=== PATIENT | male | born 1945 | race Caucasian/White ===

== ENCOUNTER 2024-05-07 04:35 | Inpatient (IN) | payer MEDICARE, BC ==
[~2024-05-07] VITALS: Ht 172.7 cm; Wt 68.0 kg
[2024-05-07] MEDS ORDERED: ACETAMINOPHEN 500 MG TABLET PO ONE (04:45)
[2024-05-07] MEDS: IV NORMAL SALINE 1000 ML BAG IV ONE ×2 (05:37→08:31)
[2024-05-07] MEDS ORDERED: ACETAMINOPHEN 650 MG SUPP.RECT RC ONE (05:39)
[2024-05-07] MEDS ORDERED: ONDANSETRON 4 MG/2 ML VIAL ONE (05:39)
[2024-05-07 05:43] LABS: BASOPHILS % (AUTO) 0.4 % (0.0-2.0); EOSINOPHILS # (AUTO) 0.1 K/uL (0.0-0.7); EOSINOPHILS % (AUTO) 1.1 % (0.0-7.0); HEMATOCRIT 34.9 % (36.7-47.1); HEMOGLOBIN 12.3 g/dL (12.5-16.3); LYMPHOCYTES # (AUTO) 0.4 K/uL (0.8-4.8); LYMPHOCYTES % (AUTO) 3.9 % (20.5-51.5); MEAN CORPUSCULAR HEMOGLOBIN 32.4 uug (23.8-33.4); MEAN CORPUSCULAR HGB CONC 35 g/dL (32.5-36.3); MEAN CORPUSCULAR VOLUME 91.9 fL (73.0-96.2); MONOCYTES # (AUTO) 0.4 K/uL (0.1-1.30); MONOCYTES % (AUTO) 3.9 % (0.0-11.0); NEUTROPHILS # (AUTO) 9.6 K/uL (1.8-8.9); NEUTROPHILS % (AUTO) 90.7 % (38.5-71.5); PLATELET COUNT (AUTO) 219 K/uL (152-348); RED BLOOD CELL COUNT(AUTO) 3.79 MIL/uL (4.06-5.63); WHITE BLOOD COUNT (AUTO) 10.6 K/uL (3.6-10.2)
[2024-05-07] MEDS ORDERED: ROSU5TAB PO (05:50)
[2024-05-07] MEDS ORDERED: AMLO10TA59 PO (05:50)
[2024-05-07] MEDS ORDERED: INSU100I26 SQ (05:50)
[2024-05-07] MEDS ORDERED: PRED2.5T PO (05:50)
[2024-05-07] MEDS ORDERED: HYDR-4075 PO (05:50)
[2024-05-07] MEDS: ACETAMINOPHEN 650 MG SUPP.RECT RC ONE (05:53)
[2024-05-07] MEDS: ONDANSETRON 4 MG/2 ML VIAL IV ONE (05:54)
[2024-05-07 05:57] LABS: ACETONE, SERUM NEGATIVE (NEGATIVE); MAGNESIUM 1.8 mg/dL (1.8-2.4)
[2024-05-07 06:03] LABS: ALANINE AMINOTRANSFERASE 22 U/L (16-63); ALBUMIN 3.7 g/dL (3.4-5.0); ALKALINE PHOSPHATASE 65 U/L (50-136); ASPARTATE AMINOTRANSFERASE 7 U/L (15-37); BILIRUBIN,DIRECT 0.2 mg/dL (0.0-0.2); CARBON DIOXIDE 25 mmol/L (21-32); CHLORIDE 103 mmol/L (98-107); CREATININE 1.4 mg/dL (0.6-1.3); GLUCOSE 221 mg/dL (74-106); NT-PRO BNP 269 pg/mL (0-125); POTASSIUM 3.1 mmol/L (3.5-5.1); SODIUM SERUM 140 mmol/L (136-145); TOTAL PROTEIN, SERUM 7.1 g/dL (6.4-8.2); UREA NITROGEN, BLOOD 28 mg/dL (7-18)
[2024-05-07] MEDS ORDERED: CEFTRIAXONE /D5W 50ML IVPB **ER PYXIS IV ONE (06:24)
[2024-05-07] MEDS: CEFTRIAXONE 1 G in IV DEXTROSE 5% 50 ML IV ONE (06:29)
[2024-05-07 09:35] LABS: *BILIRUBIN,URIN NEGATIVE (NEGATIVE); *BLOOD, URINE NEGATIVE (NEGATIVE); *CLARITY,URINE CLEAR (CLEAR); *COLOR,URINE YELLOW (YELLOW); *KETONES,URINE NEGATIVE (NEGATIVE); *PROTEIN,URINE 2+ (NEGATIVE); *UROBILINOGEN,URINE 0.2 E.U./dl (NORMAL); LEUKOCYTE ESTERASE ,URINE NEGATIVE (NEGATIVE); NITRITE, URINE NEGATIVE (NEGATIVE); UGLUCOSE TRACE (NEGATIVE)
[2024-05-07 10:11] LABS: BACTERIA,URINE FEW /HPF (NONE SEEN); RBC,URINE 0-3 /HPF (0-3); SQUAMOUS EPITHELIAL CELL,UR FEW /HPF (NONE SEEN); WBC,URINE 0-3 /HPF (0-3)
[2024-05-07] MEDS ORDERED: INSULIN REGULAR, HUMAN 1000 UNIT/10 ML VIAL SQ SCH (11:45)
[2024-05-07] MEDS ORDERED: REMEDY ESSENTIAL ZINC PASTE 113 GM TP PRN (11:45)
[2024-05-07] MEDS: BLOOD SUGAR DIAGNOSTIC 1 EACH STRIP VI SCH (11:45)
[2024-05-07] MEDS ORDERED: MAGNESIUM HYDROXIDE 30 ML LIQUID UDC PO PRN (11:45)
[2024-05-07] MEDS ORDERED: POTASSIUM CHLORIDE 10 MEQ TAB.PRT.SR PO ONE (11:45)
[2024-05-07] MEDS ORDERED: ONDANSETRON 4 MG/2 ML VIAL IV PRN (11:45)
[2024-05-07] MEDS ORDERED: DEXTROSE 50% 50 ML DISP.SYRIN IV PRN (12:00)
[2024-05-07 12:12] VITALS: BP 148/78; TEMP 98.2
[2024-05-07] MEDS ORDERED: LEVO125T8 PO (12:59)
[2024-05-07] MEDS ORDERED: INSU100I33 SQ (12:59)
[2024-05-07] MEDS ORDERED: PANT40TA49 PO (12:59)
[2024-05-07] MEDS ORDERED: ROSU10TA29 PO (12:59)
[2024-05-07] MEDS ORDERED: CILO100T PO (12:59)
[2024-05-07] MEDS ORDERED: HYDR-894 PO (12:59)
[2024-05-07] MEDS: IV NS 1000 ML 1,000 ML IV PRN (13:42)
[2024-05-07] MEDS: TAMSULOSIN HCL 0.4 MG CAP.SR.24H PO ONE (14:03)
[2024-05-07] MEDS: POTASSIUM CHLORIDE 20 MEQ TAB.PRT.SR PO ONE (14:03)
[2024-05-07] MEDS: CILOSTAZOL 100 MG TABLET PO SCH (17:33)
[2024-05-07] MEDS: hydrALAZINE HCL 25 MG TABLET PO SCH (17:33)
[2024-05-07 18:39] VITALS: BP 168/90; TEMP 98.4
[2024-05-07] MEDS ORDERED: hydrALAZINE HCL 25 MG TABLET PO PRN (19:15)
[2024-05-07 19:30] VITALS: BP 162/88; TEMP 101; O2SAT 97
[2024-05-07] MEDS: ACETAMINOPHEN 325 MG TABLET PO PRN (20:13)
[2024-05-07] MEDS: ATORVASTATIN 20 MG TABLET PO SCH (20:13)
[2024-05-07] MEDS: INSULIN REGULAR, HUMAN 1000 UNIT/10 ML VIAL SQ PRN (20:18)
[2024-05-07] MEDS: INSULIN GLARGINE,HUM 300 UNITS/3 ML CARTRIDGE SQ SCH (20:19)
[2024-05-07 20:21] LABS: *BILIRUBIN,URIN NEGATIVE (NEGATIVE); *BLOOD, URINE NEGATIVE (NEGATIVE); *CLARITY,URINE CLEAR (CLEAR); *COLOR,URINE LIGHT YELLOW (YELLOW); *KETONES,URINE NEGATIVE (NEGATIVE); *PROTEIN,URINE 1+ (NEGATIVE); *UROBILINOGEN,URINE 0.2 E.U./dl (NORMAL); LEUKOCYTE ESTERASE ,URINE NEGATIVE (NEGATIVE); NITRITE, URINE NEGATIVE (NEGATIVE); PH,URINE 7.5 (5.0-8.0); UGLUCOSE TRACE (NEGATIVE)
[2024-05-07 20:25] LABS: *CREATININE,URINE 20.1 mg/dL (30-125); *URINE TOTAL PROTEIN RANDOM 38.2 mg/dL (<150/24HR)
[2024-05-07 20:30] LABS: BACTERIA,URINE NONE SEEN /HPF (NONE SEEN); RBC,URINE NONE SEEN /HPF (0-3); SQUAMOUS EPITHELIAL CELL,UR FEW /HPF (NONE SEEN); WBC,URINE 0-3 /HPF (0-3)
[2024-05-07] MEDS ORDERED: ROSUVASTATIN 10 MG PO SCH (21:00)
[2024-05-08] MEDS: LEVOTHYROXINE SODIUM 125 MCG TABLET PO SCH (06:16)
[2024-05-08] MEDS: PANTOPRAZOLE SODIUM 40 MG TABLET.DR PO SCH (06:17)
[2024-05-08] MEDS: CEFTRIAXONE 1 G in IV DEXTROSE 5% 50 ML IV SCH (06:17)
[2024-05-08 06:24] LABS: BASOPHILS % (AUTO) 0.2 % (0.0-2.0); EOSINOPHILS # (AUTO) 0.1 K/uL (0.0-0.7); EOSINOPHILS % (AUTO) 0.9 % (0.0-7.0); HEMATOCRIT 32.7 % (36.7-47.1); HEMOGLOBIN 11.6 g/dL (12.5-16.3); LYMPHOCYTES # (AUTO) 0.3 K/uL (0.8-4.8); LYMPHOCYTES % (AUTO) 4.5 % (20.5-51.5); MEAN CORPUSCULAR HEMOGLOBIN 32.9 uug (23.8-33.4); MEAN CORPUSCULAR HGB CONC 36 g/dL (32.5-36.3); MEAN CORPUSCULAR VOLUME 92.8 fL (73.0-96.2); MONOCYTES # (AUTO) 0.2 K/uL (0.1-1.30); MONOCYTES % (AUTO) 2.6 % (0.0-11.0); NEUTROPHILS # (AUTO) 6.8 K/uL (1.8-8.9); NEUTROPHILS % (AUTO) 91.8 % (38.5-71.5); PLATELET COUNT (AUTO) 133 K/uL (152-348); RED BLOOD CELL COUNT(AUTO) 3.52 MIL/uL (4.06-5.63); RED CELL DISTRIBUTION WIDTH 13.8 % (12.1-16.2); WHITE BLOOD COUNT (AUTO) 7.4 K/uL (3.6-10.2)
[2024-05-08 06:48] VITALS: BP 143/78; TEMP 99.5; O2SAT 96
[2024-05-08 06:54] LABS: ALANINE AMINOTRANSFERASE 16 U/L (16-63); ALBUMIN 2.5 g/dL (3.4-5.0); ALKALINE PHOSPHATASE 55 U/L (50-136); ASPARTATE AMINOTRANSFERASE 15 U/L (15-37); BILIRUBIN,DIRECT 0.3 mg/dL (0.0-0.2); BILIRUBIN,TOTAL 0.5 mg/dL (0.2-1.0); CALCIUM 8.4 mg/dL (8.5-10.1); CARBON DIOXIDE 21 mmol/L (21-32); CHLORIDE 102 mmol/L (98-107); CREATINE KINASE, TOTAL 78 U/L (39-308); CREATININE 1.2 mg/dL (0.6-1.3); GLUCOSE 78 mg/dL (74-106); MAGNESIUM 1.6 mg/dL (1.8-2.4); PHOSPHOROUS 2.4 mg/dL (2.5-4.9); SODIUM SERUM 135 mmol/L (136-145); TOTAL PROTEIN, SERUM 5.8 g/dL (6.4-8.2); UREA NITROGEN, BLOOD 17 mg/dL (7-18)
[2024-05-08] MEDS: AMLODIPINE 10 MG TABLET PO SCH (08:30)
[2024-05-08] MEDS: predniSONE 5 MG TABLET PO SCH (08:30)
[2024-05-08] MEDS: NEUTRA PHOS PACKET PO ONE (09:54)
[2024-05-08] MEDS: POTASSIUM CHLORIDE 10 MEQ TAB.PRT.SR PO ONE (09:54)
[2024-05-08] MEDS: MAGNESIUM OXIDE 400 MG TABLET PO ONE (09:54)
[2024-05-08 11:24] VITALS: BP 130/63; TEMP 98.6; O2SAT 95
[2024-05-08 15:09] VITALS: BP 139/77; TEMP 98.4; O2SAT 96
[2024-05-08 20:00] VITALS: BP 93/66; TEMP 99; O2SAT 96
[2024-05-08] MEDS: TAMSULOSIN HCL 0.4 MG CAP.SR.24H PO SCH (21:28)
[2024-05-09 05:10] LABS: PTH, INTACT 11 pg/mL (15-65)
[2024-05-09 06:17] VITALS: BP 144/67; TEMP 98.7; O2SAT 95
[2024-05-09 06:26] LABS: BASOPHILS % (AUTO) 0.3 % (0.0-2.0); EOSINOPHILS # (AUTO) 0.1 K/uL (0.0-0.7); EOSINOPHILS % (AUTO) 2.4 % (0.0-7.0); HEMATOCRIT 27.5 % (36.7-47.1); HEMOGLOBIN 9.8 g/dL (12.5-16.3); LYMPHOCYTES # (AUTO) 0.4 K/uL (0.8-4.8); LYMPHOCYTES % (AUTO) 7.7 % (20.5-51.5); MEAN CORPUSCULAR HEMOGLOBIN 32.5 uug (23.8-33.4); MEAN CORPUSCULAR HGB CONC 36 g/dL (32.5-36.3); MEAN CORPUSCULAR VOLUME 91.2 fL (73.0-96.2); MONOCYTES # (AUTO) 0.1 K/uL (0.1-1.30); MONOCYTES % (AUTO) 2.8 % (0.0-11.0); NEUTROPHILS # (AUTO) 4.3 K/uL (1.8-8.9); NEUTROPHILS % (AUTO) 86.8 % (38.5-71.5); PLATELET COUNT (AUTO) 102 K/uL (152-348); RED BLOOD CELL COUNT(AUTO) 3.02 MIL/uL (4.06-5.63); RED CELL DISTRIBUTION WIDTH 13.6 % (12.1-16.2)
[2024-05-09 06:41] LABS: DIFFERENTIAL COMMENT 1
[2024-05-09 06:44] LABS: CALCIUM 7.9 mg/dL (8.5-10.1); CARBON DIOXIDE 22 mmol/L (21-32); CHLORIDE 104 mmol/L (98-107); CREATININE 1.3 mg/dL (0.6-1.3); GLUCOSE 91 mg/dL (74-106); MAGNESIUM 1.7 mg/dL (1.8-2.4); PHOSPHOROUS 2.5 mg/dL (2.5-4.9); POTASSIUM 3.4 mmol/L (3.5-5.1); SODIUM SERUM 136 mmol/L (136-145); UREA NITROGEN, BLOOD 19 mg/dL (7-18)
[2024-05-09 10:06] LABS: A/G RATIO 1.1 (0.7-1.7); ALBUMIN 2.7 g/dL (2.9-4.4); ALPHA-1-GLOBULIN 0.4 g/dL (0.0-0.4); ALPHA-2-GLOBULIN 0.7 g/dL (0.4-1.0); BETA GLOBULIN 0.7 g/dL (0.7-1.3); GAMMA GLOBULIN 0.8 g/dL (0.4-1.8); GLOBULIN, TOTAL 2.5 g/dL (2.2-3.9); M-SPIKE Not Observed g/dL (Not Observed); PROTEIN, TOTAL 5.2 g/dL (6.0-8.5)
[2024-05-09] MEDS: POTASSIUM CHLORIDE 20 MEQ TAB.PRT.SR PO ONE ×2 (10:06→12:38)
[2024-05-09 11:33] VITALS: BP 124/61; TEMP 98.2; O2SAT 97
[2024-05-09] MEDS: MAGNESIUM OXIDE 400 MG TABLET PO SCH (12:37)
[2024-05-09 16:00] VITALS: BP 132/69; TEMP 98.8; O2SAT 97
[2024-05-09 17:09] VITALS: BP 132/69
[2024-05-09] MEDS ORDERED: BLOO-360 IN (18:55)
[2024-05-09] MEDS ORDERED: ZINC113P3 TP (18:55)
[2024-05-09] MEDS ORDERED: INSU100V7 SQ (18:55)
[2024-05-09] MEDS ORDERED: MAGN400O6 PO (18:55)
[2024-05-09] MEDS ORDERED: ATOR20TA PO (18:55)
[2024-05-09] MEDS ORDERED: TAMS-3 PO (18:55)
[2024-05-09] MEDS ORDERED: ONDA4VIA52 IV (18:55)
[2024-05-09] MEDS ORDERED: PRED2.5T PO (18:55)
[2024-05-09] MEDS ORDERED: PRED-170 PO (18:55)
[2024-05-09] MEDS ORDERED: ACET325T53 PO (18:55)
[2024-05-09] MEDS ORDERED: INSU100V28 SQ (18:55)
[2024-05-09] MEDS ORDERED: CEPH500C2 PO (18:55)
[2024-05-09] MEDS ORDERED: HYDR-894 PO (18:59)
== END 2024-05-09 17:59 | DRG 393 ==
LOC: ER 04:36 → MEDSURG3 11:14
PROVIDERS: ADMIT Nurse Practitioner Family; ATTEND Nurse Practitioner Family
DX: K52.1 Toxic gastroenteritis and colitis (principal); N17.0 Acute kidney failure with tubular necrosis; N13.2 Hydronephrosis with renal and ureteral calculous obstruction; E86.0 Dehydration; E87.6 Hypokalemia; T50.B95A Adverse effect of other viral vaccines, initial encounter; Y92.89 Other specified places as the place of occurrence of the external cause; E03.9 Hypothyroidism, unspecified; E83.39 Other disorders of phosphorus metabolism; E83.42 Hypomagnesemia; E11.9 Type 2 diabetes mellitus without complications; D64.9 Anemia, unspecified; E78.5 Hyperlipidemia, unspecified; I10 Essential (primary) hypertension; I25.10 Atherosclerotic heart disease of native coronary artery without angina pectoris; K57.30 Diverticulosis of large intestine without perforation or abscess without bleeding; K80.20 Calculus of gallbladder without cholecystitis without obstruction; N42.89 Other specified disorders of prostate; Z79.84 Long term (current) use of oral hypoglycemic drugs; Z88.2 Allergy status to sulfonamides; Z95.2 Presence of prosthetic heart valve; Z87.442 Personal history of urinary calculi
CPT/HCPCS: 36415; 71045; 83605; 83735; 83970; 84100; 84155; 84165; 84300; 84484; 85025; 87040; 93005; A4606; A4663; G0378; J0696; J1815; J2405; J7040; J7512

== ENCOUNTER 2024-05-09 18:30 | Inpatient (IN) | payer MEDICARE, BC ==
[~2024-05-09] VITALS: Ht 172.7 cm; Wt 65.8 kg
[~2024-05-09 18:30] MED LIST: AMLO10TA59 PO; CILO100T PO; HYDR-894 PO; INSU100I26 SQ; INSU100I33 SQ; LEVO125T8 PO; PANT40TA49 PO; PRED2.5T PO; ROSU10TA29 PO
[2024-05-09] MEDS ORDERED: ACET325T53 PO (18:55)
[2024-05-09] MEDS ORDERED: TAMS-3 PO (18:55)
[2024-05-09] MEDS ORDERED: MAGN400O6 PO (18:55)
[2024-05-09] MEDS ORDERED: INSU100V28 SQ (18:55)
[2024-05-09] MEDS ORDERED: ONDA4VIA52 IV (18:55)
[2024-05-09] MEDS ORDERED: PRED-170 PO (18:55)
[2024-05-09] MEDS ORDERED: BLOO-360 IN (18:55)
[2024-05-09] MEDS ORDERED: ZINC113P3 TP (18:55)
[2024-05-09] MEDS ORDERED: INSU100V7 SQ (18:55)
[2024-05-09] MEDS ORDERED: CEPH500C2 PO (18:55)
[2024-05-09] MEDS ORDERED: ATOR20TA PO (18:55)
[2024-05-09] MEDS ORDERED: PRED2.5T PO (18:55)
[2024-05-09] MEDS ORDERED: HYDR-894 PO (18:59)
[2024-05-09 19:35] VITALS: BP 155/72; TEMP 98.5; O2SAT 99
[2024-05-09 19:40] VITALS: BP 150/77; TEMP 99; O2SAT 97
[2024-05-09] MEDS ORDERED: CEFTRIAXONE 1 G in IV DEXTROSE 5% 50 ML IV SCH (19:45)
[2024-05-09] MEDS ORDERED: INSULIN REGULAR, HUMAN 1000 UNIT/10 ML VIAL SQ PRN (19:45)
[2024-05-09] MEDS ORDERED: ACETAMINOPHEN 325 MG TABLET-SA PATIENTS-PAIN ONLY PO PRN (19:45)
[2024-05-09] MEDS ORDERED: DEXTROSE 50% 50 ML DISP.SYRIN IV PRN ×2 (19:45)
[2024-05-09] MEDS ORDERED: REMEDY ESSENTIAL ZINC PASTE 113 GM TOP PRN (21:00)
[2024-05-09] MEDS ORDERED: REMEDY ESSENTIAL ZINC PASTE 113 GM TOP SCH (21:00)
[2024-05-09] MEDS ORDERED: BLOOD SUGAR DIAGNOSTIC 1 EACH STRIP VI SCH (21:00)
[2024-05-09] MEDS: INSULIN GLARGINE,HUM 300 UNITS/3 ML CARTRIDGE SQ SCH (21:00)
[2024-05-09] MEDS ORDERED: INSULIN GLARGINE,HUM 300 UNITS/3 ML CARTRIDGE SQ SCH (21:00)
[2024-05-09] MEDS ORDERED: CEFTRIAXONE /D5W 50ML IVPB **ER PYXIS IV ONE (21:40)
[2024-05-09] MEDS: TAMSULOSIN HCL 0.4 MG CAP.SR.24H PO SCH (21:46)
[2024-05-09] MEDS: CARVEDILOL 6.25 MG TABLET PO SCH (21:47)
[2024-05-09] MEDS: BLOOD SUGAR DIAGNOSTIC 1 EACH STRIP VI SCH (21:47)
[2024-05-09] MEDS: ATORVASTATIN 20 MG TABLET PO SCH (21:47)
[2024-05-09] MEDS: DOXYCYCLINE HYCLATE 100 MG TABLET PO SCH (22:15)
[2024-05-09] MEDS ORDERED: VANCOMYCIN IV 200 ML ONE (22:58)
[2024-05-09] MEDS ORDERED: VANCOMYCIN HCL 500 MG VIAL ONE (22:58)
[2024-05-09] MEDS: VANCOMYCIN IV 1,250 MG in IV NORMAL SALINE 250 ML IV ONE (23:11)
[2024-05-10] MEDS: diphenhydrAMINE 25 MG CAP PO PRN (00:40)
[2024-05-10] MEDS: PANTOPRAZOLE SODIUM 40 MG TABLET.DR PO SCH (07:05)
[2024-05-10] MEDS: LEVOTHYROXINE SODIUM 125 MCG TABLET PO SCH (07:05)
[2024-05-10 07:13] VITALS: BP 145/59; TEMP 98.9; O2SAT 91
[2024-05-10 07:32] LABS: BASOPHILS % (AUTO) 0.2 % (0.0-2.0); EOSINOPHILS # (AUTO) 0.1 K/uL (0.0-0.7); EOSINOPHILS % (AUTO) 2.5 % (0.0-7.0); HEMOGLOBIN 9.9 g/dL (12.5-16.3); LYMPHOCYTES # (AUTO) 0.2 K/uL (0.8-4.8); LYMPHOCYTES % (AUTO) 2.6 % (20.5-51.5); MEAN CORPUSCULAR HEMOGLOBIN 32.3 uug (23.8-33.4); MEAN CORPUSCULAR HGB CONC 36 g/dL (32.5-36.3); MEAN CORPUSCULAR VOLUME 90.8 fL (73.0-96.2); MONOCYTES # (AUTO) 0.1 K/uL (0.1-1.30); MONOCYTES % (AUTO) 1.3 % (0.0-11.0); NEUTROPHILS # (AUTO) 5.4 K/uL (1.8-8.9); NEUTROPHILS % (AUTO) 93.4 % (38.5-71.5); PLATELET COUNT (AUTO) 94 K/uL (152-348); RED BLOOD CELL COUNT(AUTO) 3.08 MIL/uL (4.06-5.63); RED CELL DISTRIBUTION WIDTH 13.8 % (12.1-16.2); WHITE BLOOD COUNT (AUTO) 5.8 K/uL (3.6-10.2)
[2024-05-10 07:36] VITALS: BP 139/70; TEMP 99.1; O2SAT 97
[2024-05-10 07:42] LABS: DIFFERENTIAL COMMENT 1
[2024-05-10 07:55] LABS: IRON, SERUM 11 ug/dL (50-175)
[2024-05-10 08:19] LABS: ALANINE AMINOTRANSFERASE 32 U/L (16-63); ALBUMIN 2.1 g/dL (3.4-5.0); ALKALINE PHOSPHATASE 47 U/L (50-136); ASPARTATE AMINOTRANSFERASE 18 U/L (15-37); BILIRUBIN,TOTAL 0.6 mg/dL (0.2-1.0); CALCIUM 7.6 mg/dL (8.5-10.1); CARBON DIOXIDE 20 mmol/L (21-32); CHLORIDE 107 mmol/L (98-107); CHOLESTEROL 100 mg/dL (<200); CREATININE 1.2 mg/dL (0.6-1.3); GLUCOSE 88 mg/dL (74-106); HDL CHOLESTEROL 34 mg/dL (40-60); MAGNESIUM 1.6 mg/dL (1.8-2.4); POTASSIUM 3.3 mmol/L (3.5-5.1); SODIUM SERUM 138 mmol/L (136-145); TOTAL PROTEIN, SERUM 5.2 g/dL (6.4-8.2); TRIGLYCERIDES 147 MG/DL (30-150); UREA NITROGEN, BLOOD 18 mg/dL (7-18)
[2024-05-10 08:46] LABS: LIPASE 18 U/L (16-77)
[2024-05-10] MEDS: predniSONE 5 MG TABLET PO SCH (08:48)
[2024-05-10] MEDS: CILOSTAZOL 100 MG TABLET PO SCH (08:48)
[2024-05-10] MEDS: ACETAMINOPHEN 325 MG TABLET PO PRN (08:48)
[2024-05-10 09:01] LABS: THYROID STIMULATING HORMONE 6.693 mIU/mL (0.358-3.740)
[2024-05-10 09:28] LABS: EOSINOPHILS % (MANUAL) 3 % (0-8); LYMPHOCYTES % (MANUAL) 3 % (20-40); MONOCYTES % (MANUAL) 1 % (2-10); NEUTROPHILS % (MANUAL) 93 % (42-75); PLATELET ESTIMATE DECREASED
[2024-05-10] MEDS: INSULIN REGULAR, HUMAN 1000 UNIT/10 ML VIAL SQ PRN (12:10)
[2024-05-10] MEDS: POTASSIUM CHLORIDE 20 MEQ TAB.PRT.SR PO ONE (12:14)
[2024-05-10] MEDS: MAGNESIUM OXIDE 400 MG TABLET PO ONE (14:16)
[2024-05-10] MEDS: NEUTRA PHOS PACKET PO ONE (15:30)
[2024-05-10 16:00] VITALS: BP 116/54; TEMP 98; O2SAT 98
[2024-05-10 20:00] VITALS: BP 139/57; TEMP 98.2; O2SAT 96
[2024-05-11 06:52] VITALS: BP 127/59; TEMP 98; O2SAT 99
[2024-05-11 07:44] LABS: CALCIUM 8.8 mg/dL (8.5-10.1); CARBON DIOXIDE 24 mmol/L (21-32); CHLORIDE 105 mmol/L (98-107); CREATININE 1.3 mg/dL (0.6-1.3); GLUCOSE 104 mg/dL (74-106); POTASSIUM 3.7 mmol/L (3.5-5.1); SODIUM SERUM 138 mmol/L (136-145); UREA NITROGEN, BLOOD 21 mg/dL (7-18)
[2024-05-11] MEDS: FERROUS SULFATE 325 MG TABEC PO SCH (08:37)
[2024-05-11 16:24] VITALS: BP 130/67; TEMP 97.6; O2SAT 98
[2024-05-11 22:52] VITALS: BP 149/65; TEMP 98.6; O2SAT 96
[2024-05-12 06:06] VITALS: BP 162/67; TEMP 97.4; O2SAT 98
[2024-05-12 15:27] VITALS: BP 139/71; TEMP 98; O2SAT 98
[2024-05-12] MEDS: GLUCERNA SHAKE 237 ML CAN PO SCH (17:06)
[2024-05-12 20:15] VITALS: BP 139/63; TEMP 97.9; O2SAT 97
[2024-05-13 06:40] VITALS: BP 165/77; TEMP 97.6; O2SAT 96
[2024-05-13] MEDS: hydrALAZINE HCL 25 MG TABLET PO PRN (06:48)
[2024-05-13] MEDS: MAGNESIUM HYDROXIDE 30 ML LIQUID UDC PO PRN (08:25)
[2024-05-13] MEDS: LINEZOLID 600 MG TABLET PO SCH (12:03)
[2024-05-13 16:08] VITALS: BP 146/70; TEMP 97.8; O2SAT 99
[2024-05-13 20:04] VITALS: BP 144/58; TEMP 98.1; O2SAT 95
[2024-05-14 06:00] VITALS: BP 158/77; TEMP 98.2; O2SAT 97
[2024-05-14] MEDS: BISACODYL 5 MG TABLET.DR PO PRN (10:51)
[2024-05-14 16:05] VITALS: BP 132/61; TEMP 97.6; O2SAT 98
[2024-05-14 20:00] VITALS: BP 155/72; TEMP 98.3; O2SAT 97
[2024-05-15 07:37] LABS: BASOPHILS % (AUTO) 0.5 % (0.0-2.0); DIFFERENTIAL COMMENT 0; EOSINOPHILS # (AUTO) 0.2 K/uL (0.0-0.7); EOSINOPHILS % (AUTO) 2.7 % (0.0-7.0); HEMATOCRIT 29.3 % (36.7-47.1); HEMOGLOBIN 10.3 g/dL (12.5-16.3); LYMPHOCYTES # (AUTO) 2.7 K/uL (0.8-4.8); LYMPHOCYTES % (AUTO) 31.7 % (20.5-51.5); MEAN CORPUSCULAR HEMOGLOBIN 31.8 uug (23.8-33.4); MEAN CORPUSCULAR HGB CONC 35 g/dL (32.5-36.3); MEAN CORPUSCULAR VOLUME 90.4 fL (73.0-96.2); MONOCYTES # (AUTO) 0.8 K/uL (0.1-1.30); MONOCYTES % (AUTO) 9.7 % (0.0-11.0); NEUTROPHILS # (AUTO) 4.7 K/uL (1.8-8.9); NEUTROPHILS % (AUTO) 55.4 % (38.5-71.5); PLATELET COUNT (AUTO) 368 K/uL (152-348); RED BLOOD CELL COUNT(AUTO) 3.24 MIL/uL (4.06-5.63); RED CELL DISTRIBUTION WIDTH 14.1 % (12.1-16.2); WHITE BLOOD COUNT (AUTO) 8.5 K/uL (3.6-10.2)
[2024-05-15 15:36] VITALS: BP 132/56; TEMP 97.9; O2SAT 99
[2024-05-15 20:00] VITALS: BP 139/74; TEMP 98; O2SAT 98
[2024-05-16 06:00] VITALS: BP 162/85; TEMP 98.2; O2SAT 94
[2024-05-16 09:32] VITALS: BP 138/65
== END 2024-05-16 15:10 | disposition home health service (06) | DRG 948 ==
PROVIDERS: ADMIT Physical Medicine & Rehabilitation Pain Medicine; ATTEND Physical Medicine & Rehabilitation Pain Medicine
DX: R53.1 Weakness (principal); L03.113 Cellulitis of right upper limb; N13.2 Hydronephrosis with renal and ureteral calculous obstruction; K52.1 Toxic gastroenteritis and colitis; N17.9 Acute kidney failure, unspecified; T88 Other complications of surgical and medical care, not elsewhere classified; R50.83 Postvaccination fever; T50.B95D Adverse effect of other viral vaccines, subsequent encounter; D64.9 Anemia, unspecified; E03.9 Hypothyroidism, unspecified; E11.9 Type 2 diabetes mellitus without complications; E78.5 Hyperlipidemia, unspecified; I10 Essential (primary) hypertension; R91.1 Solitary pulmonary nodule; K57.30 Diverticulosis of large intestine without perforation or abscess without bleeding; K80.20 Calculus of gallbladder without cholecystitis without obstruction; N42.89 Other specified disorders of prostate; Z87.442 Personal history of urinary calculi; Z95.2 Presence of prosthetic heart valve; Z88.2 Allergy status to sulfonamides; R79.89 Other specified abnormal findings of blood chemistry; E87.6 Hypokalemia; R26.81 Unsteadiness on feet
CPT/HCPCS: 36415; 70030-TC; 71045; 83550; 83690; 83735; 84100; 84443; 85025; 85610; 97535-GO-CO; J0696; J1815; J3370; J7040; J7512; Q0163